=== PATIENT | female | born 1970 | race Caucasian/White ===

== ENCOUNTER 2019-03-16 11:32 | Emergency (ER) | payer OTHER, BC ==
[2019-03-16 11:53] VITALS: BP 126/91; PULSE 77; TEMP 98.7; BMI 25.0
--- NOTE | 2019-03-16 12:23 | PDOC ---
History of Present Illness - General Chief Complaint: Pain, Acute Stated Complaint: LT.KNEE PAIN Time Seen by Provider: 03/16/19 12:06 - History of Present Illness Initial Comments: 03/16/19 12:20 48-year-old female without comorbidities presents for evaluation of left knee pain. She reports a twisting type injury while running up the steps. No prior problems with the left knee Past History - Past Medical History Allergies/Adverse Reactions: Allergies Allergy/AdvReac Type Severity Reaction Status Date / Time No Known Allergies Allergy Verified 03/16/19 11:50 Home Medications: Ambulatory Orders NK [No Known Home Medication] 03/16/19 Asthma: No Cancer: No Cardiac Disorders: No COPD: No Diabetes: No HTN: No Seizures: No Thyroid Disease: No - Immunization History Immunization Up to Date: Yes - Suicide/Smoking/Psychosocial Hx Smoking Status: No Smoking History: Never smoked Have you smoked in the past 12 months: No Number of Cigarettes Smoked Daily: 0 Hx Alcohol Use: No Drug/Substance Use Hx: No Substance Use Type: None Hx Substance Use Treatment: No Review of Systems - Review of Systems Musculoskeletal: Yes: Joint Pain *Physical Exam - Vital Signs Last Vital Signs Temp Pulse Resp BP Pulse Ox 98.7 F 77 17 126/91 98 03/16/19 11:51 03/16/19 11:51 03/16/19 11:51 03/16/19 11:51 03/16/19 11:51 - Physical Exam Comments: 03/16/19 12:22 Left knee skin color and temperature are normal. There is moderate swelling about the knee. Range of motion 0-90 with stiffness at terminal flexion. There is an intra-articular effusion. Stable to varus and valgus stress shoddy Lockman 's endpoint. No patellofemoral instability or apprehension. Tenderness over the medial condyle and medial joint line of the femur thigh and calf are soft and nontender normal hip and ankle range of motion. She is neurovascularly intact. Extensor mechanism is intact neurovascularly intact ED Treatment Course - RADIOLOGY Radiology Studies Ordered: Category Date Time Status KNEE 3 POS-LEFT [RAD] Stat Radiology 03/16/19 12:19 Ordered Medical Decision Making - Medical Decision Making 03/16/19 12:36 X-rays of the left knee show no evidence of fracture trauma or destructive process. I suspect an ACL tear in the left knee. Weight-bear as tolerated with knee immobilizer and crutches follow-up with orthopedics Tylenol and Motrin as directed for pain *DC/Admit/Observation/Transfer Diagnosis at time of Disposition: Knee sprain - Discharge Dispostion Disposition: HOME Condition at time of disposition: Stable Decision to Admit order: No - Referrals Referrals: Maurice Schilling DO [Staff Physician] - - Patient Instructions Printed Discharge Instructions: Knee Sprain, DI for Knee Sprain Additional Instructions: Tylenol and Motrin as directed for pain. Follow-up with orthopedic surgery in 1- 2 days for further evaluation and treatment options. Return to the emergency room for further evaluation and treatment should her pain worsen prior to follow -up. Weight-bear as tolerated with the knee immobilizer and crutches remove the knee immobilizer for gentle range of motion as shown in the ER today - Post Discharge Activity Forms/Work/School Notes: Back to Work
== END 2019-03-16 13:02 | disposition home or self-care (01) ==
LOC: JERFT 11:32
PROC: 2W3RXYZ Immobilization of Left Lower Leg using Other Device (ICD-10-PCS; principal; 2019-03-16)
DX: S83.8X2A Sprain of other specified parts of left knee, initial encounter (principal); X50.1XXA Overexertion from prolonged static or awkward postures, initial encounter; Y93.02 Activity, running; Y92.89 Other specified places as the place of occurrence of the external cause; Y99.8 Other external cause status
CPT/HCPCS: 73562-TC-LT-FY; 99282-25

== ENCOUNTER 2020-07-27 13:25 | Emergency (ER) | payer OTHER ==
--- NOTE | 2020-07-27 13:34 | PDOC ---
Attending Attestation - Resident Resident Name: Cristian Paez - ED Attending Attestation I have performed the following: I have examined & evaluated the patient, The case was reviewed & discussed with the resident, I agree w/resident's findings & plan, Exceptions are as noted - HPI HPI: 07/27/20 14:08 Stepped in a hole yesterday, wrenching her back. Complains of pain in the area of the left scapula and trapezius muscles. No head or neck injury. No injury to the extremities. Full range of motion of all joints and no impairment of gait. - Physicial Exam PE: 07/27/20 14:09 Normal vital signs Head/neck atraumatic Lungs clear CV normal Musculoskeletal: Trigger point tenderness along the medial border of the left scapula. No deformities in the area of the clavicle or shoulder girdle. Carlos rovascular intact to the left upper extremity. - Medical Decision Making 07/27/20 14:10 Assessment: Whiplash type, jarring injury, musculoskeletal, no sign of fracture or other serious injury Plan: Symptomatic treatment and follow-up primary physician if no improvement. Fully ambulatory no significant distress at discharge to follow-up as needed. 07/27/20 14:11 Discharge - Discharge Information Problems reviewed: Yes Clinical Impression/Diagnosis: Back pain Qualifiers: Back pain location: thoracic back pain Chronicity: acute Back pain laterality: left Qualified Code(s): M54.6 - Pain in thoracic spine Condition: Good Disposition: HOME - Additional Discharge Information Prescriptions: Cyclobenzaprine HCl 5 mg PO TID PRN #9 tablet PRN Reason: Pain Ibuprofen 600 mg PO TID PRN #9 tablet PRN Reason: Pain - Follow up/Referral - Patient Discharge Instructions Additional Instructions: You were seen in the ER for back and shoulder pain. It is most likely a muscle sprain from your fall yesterday. We did a physical exam and determined no imaging was required. We prescribed ibuprofen and flexaril (a muscle relaxant), of which you can take up to three pills per day. Please follow up with your primary doctor within one week. Please return to the ER if you experience fever, weakness, or numbness, or any other reason. - Post Discharge Activity
[2020-07-27 13:37] VITALS: BP 116/75; PULSE 87; TEMP 98.4; BMI 25.8
--- NOTE | 2020-07-27 13:59 | PDOC ---
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 She inadvertently stepped in a whole and twisted her back. Today, she has noticed pain in her left posterior shoulder and left-mid back when turning to the left. Denies radiation. Has not taken anything for the pain. Denies numbness or weakness, denies saddle anesthesia, incontinence/retention. ROS otherwise negative PMH: as above Meds: none Allergies: none ROS GENERAL/CONSTITUTIONAL: No fever or chills. No weakness. CARDIOVASCULAR: No chest pain or shortness of breath MUSCULOSKELETAL: back and shoulder pain NEUROLOGIC: No headache, vertigo, loss of consciousness, or change in strength/sensation. PE GENERAL: Awake, alert, and fully oriented, in no acute distress HEAD: No signs of trauma, normocephalic, atraumatic EYES: PERRLA, EOMI, sclera anicteric, conjunctiva clear ENT: Auricles normal inspection, hearing grossly normal, nares patent, oropharynx clear without exudates. Moist mucosa NECK: Normal ROM, supple, no lymphadenopathy, JVD, or masses LUNGS: No distress, speaks full sentences, clear to auscultation bilaterally HEART: Regular rate and rhythm, normal S1 and S2, no murmurs, rubs or gallops, peripheral pulses normal and equal bilaterally. ABDOMEN: Soft, nontender, normoactive bowel sounds. No guarding, no rebound. No masses EXTREMITIES : Normal inspection, Normal range of motion, no edema. No clubbing or cyanosis. NEUROLOGICAL: Normal speech, normal gait, no focal sensorimotor deficits SKIN: Warm, Dry, normal turgor, no rashes or lesions noted BACK: left thoracic paraspinal tenderness. 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 Vitals and exam reassuring. No evidence of fracture or dislocation. Most likely whiplash type injury. DC home with ibuprofen, flexaril, and rest. Past History - Medical History Allergies/Adverse Reactions: Allergies Allergy/AdvReac Type Severity Reaction Status Date / Time No Known Allergies Allergy Verified 07/27/20 13:26 Home Medications: Ambulatory Orders Cyclobenzaprine HCl 5 mg PO TID PRN #9 tablet 07/27/20 Ibuprofen 600 mg PO TID PRN #9 tablet 07/27/20 Asthma: No Cancer: No Cardiac Disorders: No COPD: No Diabetes: No HTN: No Seizures: No Thyroid Disease: No - Reproductive History Is Patient Now?: No (DENIES) - Immunization History Immunization Up to Date: Yes - Psycho-Social/Smoking History Smoking Status: No Smoking History: Never smoked Have you smoked in the past 12 months: No Number of Cigarettes Smoked Daily: 0 Information on smoking cessation initiated: No - Substance Abuse Hx (Audit-C & DAST Scrn) How often the patient has a drink containing alcohol: Never Score: In Men: 4 or > Positive; In Women: 3 or > Positive: 0 Screen Result (Pos requires Nsg. Audit-10AR): Negative In the last yr the pt used illegal drug/Rx for NonMed reason: No Score: Yes response is considered Positive: 0 Screen Result (Positive result requires Nsg. DAST-10): Negative *Physical Exam - Vital Signs Last Vital Signs Temp Pulse Resp BP Pulse Ox 98.4 F 87 20 116/75 100 07/27/20 13:26 07/27/20 13:26 07/27/20 13:26 07/27/20 13:26 07/27/20 13:26 Discharge - Discharge Information Problems reviewed: Yes Clinical Impression/Diagnosis: Back pain Qualifiers: Back pain location: thoracic back pain Chronicity: acute Back pain laterality: left Qualified Code(s): M54.6 - Pain in thoracic spine Condition: Good Disposition: HOME - Admission No - Additional Discharge Information Prescriptions: Cyclobenzaprine HCl 5 mg PO TID PRN #9 tablet PRN Reason: Pain Ibuprofen 600 mg PO TID PRN #9 tablet PRN Reason: Pain - Follow up/Referral - Patient Discharge Instructions Additional Instructions: You were seen in the ER for back and shoulder pain. It is most likely a muscle sprain from your fall yesterday. We did a physical exam and determined no imaging was required. We prescribed ibuprofen and flexaril (a muscle relaxant), of which you can take up to three pills per day. Please follow up with your primary doctor within one week. Please return to the ER if you experience fever, weakness, or numbness, or any other reason. - Post Discharge Activity Work/Back to School Note: Back to Work
== END 2020-07-27 14:28 | disposition home or self-care (01) ==
LOC: FER 13:25
DX: M54.6 Pain in thoracic spine (principal)
CPT/HCPCS: 99282-25